=== PATIENT | male | born 1970 | race Caucasian/White ===

== ENCOUNTER 2016-12-02 12:18 | Observation (INO) | payer MEDICARE ==
[~2016-12-02] VITALS: Ht 185.4 cm; Wt 99.8 kg
[2016-12-02 12:59] LABS: HEMOGLOBIN 16.1 gm/dl (14.0-17.5); RED BLOOD COUNT 5.49 M/UL (4.20-5.50); WHITE BLOOD COUNT 20.6 K/UL (4.5-11.0)
[2016-12-02 13:22] LABS: BUN/CREATININE RATIO 37 (0-10)
[2016-12-03 04:43] LABS: HEMOGLOBIN 14.2 gm/dl (14.0-17.5)
[2016-12-03 04:51] LABS: RED BLOOD COUNT 4.8 M/UL (4.20-5.50); WHITE BLOOD COUNT 8.8 K/UL (4.5-11.0)
[2016-12-03 05:21] LABS: BUN/CREATININE RATIO 33 (0-10)
[2016-12-04 04:14] LABS: HEMOGLOBIN 14.3 gm/dl (14.0-17.5); RED BLOOD COUNT 4.86 M/UL (4.20-5.50)
[2016-12-04 04:19] LABS: WHITE BLOOD COUNT 5.5 K/UL (4.5-11.0)
[2016-12-04 04:39] LABS: BUN/CREATININE RATIO 28 (0-10)
[2016-12-04] MEDS ORDERED: PROTONIX40 MG PO (16:34)
[2016-12-04] MEDS ORDERED: MAALOX PLUS 3030 ML PO (16:35)
[2016-12-04] MEDS ORDERED: CARAFATE1 GM PO (16:53)
[2016-12-04] MEDS ORDERED: NORCO 5-325 TA1 EACH PO (16:55)
== END 2016-12-04 17:50 | disposition home or self-care (01) ==
LOC: ER1 12:18 → MED SURG 4 21:51 → ZEROF 21:51 → MED SURG 4 21:51 → ZEROF 23:40 → ER1 12-03 00:17 → MED SURG 4 12-03 00:27 → ZEROF 12-03 00:27 → MED SURG 4 12-03 00:27
PROVIDERS: Emergency Medicine; Family Medicine; ADMIT Internal Medicine
DX: R10.13 Epigastric pain (principal); R00.1 Bradycardia, unspecified; D72.829 Elevated white blood cell count, unspecified; R74.0 Nonspecific elevation of levels of transaminase and lactic acid dehydrogenase [LDH]; R74.8 Abnormal levels of other serum enzymes; N20.0 Calculus of kidney; I10 Essential (primary) hypertension; Z86.19 Personal history of other infectious and parasitic diseases; Z87.898 Personal history of other specified conditions; Z80.3 Family history of malignant neoplasm of breast; Z80.42 Family history of malignant neoplasm of prostate; Z80.49 Family history of malignant neoplasm of other genital organs; Z82.49 Family history of ischemic heart disease and other diseases of the circulatory system; Z79.899 Other long term (current) drug therapy; Z90.49 Acquired absence of other specified parts of digestive tract; Z98.890 Other specified postprocedural states
CPT/HCPCS: 36415; 71010; 74000; 76705; 80053; 80074; 80076; 80307; 81001; 82150; 82550; 82553; 82977; 83605; 83690; 83874; 84484; 85025; 85027; 85610; 87086; 93005; 96365; 96375; 96376; 99285; C9113; G0378; J0696; J2405; J2550; J7030; J7050

== ENCOUNTER 2021-05-22 10:48 | Emergency (ER) | payer OTHER ==
[~2021-05-22 10:48] MED LIST: ASPIRIN81 MG PO; CARAFATE1 GM PO; CELEXA10 MG PO; IMDUR ER TAB 3030 MG PO; LIPITOR20 MG PO; MAALOX PLUS 3030 ML PO; NORCO 5-325 TA1 EACH PO; PRINIVIL10 MG PO; PROTONIX40 MG PO; TENORMIN 25 MG25 MG PO
[2021-05-22 12:18] LABS: HEMOGLOBIN 15.9 gm/dl (14.0-17.5); RED BLOOD COUNT 5.49 M/UL (4.20-5.50); WHITE BLOOD COUNT 4.6 K/UL (4.5-11.0)
[2021-05-22 12:45] LABS: BUN/CREATININE RATIO 22 (0-10)
== END 2021-05-22 14:06 | disposition home or self-care (01) ==
LOC: ER1 10:48
PROVIDERS: Student in an Organized Health Care Education/Training Program
DX: R06.02 Shortness of breath (principal); R05 Cough; I10 Essential (primary) hypertension; Z20.822 Contact with and (suspected) exposure to COVID-19
CPT/HCPCS: 71045; 80053; 85025; 99285; U0002